=== PATIENT | female | born 1960 | race Caucasian/White ===

== ENCOUNTER 2023-11-29 06:57 | Day surgery (SDC) | payer OTHER ==
[~2023-11-29] VITALS: Ht 157.5 cm; Wt 89.8 kg
[2023-11-29] MEDS ORDERED: MIDAZOLAM 2 MG/2 ML VIAL ONE (08:29)
[2023-11-29] MEDS ORDERED: fentaNYL citrate 0.05 MG/ML VIAL ONE (08:29)
[2023-11-29] MEDS: fentaNYL citrate 0.05 MG/ML VIAL IVP ONE (08:44)
[2023-11-29] MEDS: LIDOCAINE 2% 1000 MG/50 ML VIAL INJ ONE (08:45)
== END 2023-11-29 10:03 | disposition home or self-care (01) ==
LOC: MDS 06:57 → MMU 07:02 → MDS 10:03
PROVIDERS: ATTEND Internal Medicine Gastroenterology
DX: K75.81 Nonalcoholic steatohepatitis (NASH) (principal); E11.9 Type 2 diabetes mellitus without complications; E78.00 Pure hypercholesterolemia, unspecified; Z98.891 History of uterine scar from previous surgery; Z98.890 Other specified postprocedural states
CPT/HCPCS: 47000; 76942; 82948; J2001; J3010; Q0092; J2250